=== PATIENT | female | born 1985 | race Two or more races ===

== ENCOUNTER 2023-11-25 07:40 | Day surgery (SDC) | payer OTHER ==
[2023-11-20 10:27] LABS: HEMATOCRIT 38.7 % (36.0-45.00); MEAN CELL VOLUME 85.7 fL (80.00-100.00); MEAN CORPUSCULAR HEMOGLOBIN 28.7 pg (27.00-32.0); MEAN CORPUSCULAR HGB CONC 33.5 g/dl (32.0-36.0); PLATELET COUNT 399 K/uL (150-450); RED BLOOD COUNT 4.52 M/uL (4.00-6.00); RED CELL DISTRIBUTION WIDTH 14.2 % (11.5-14.5)
[2023-11-20 10:49] LABS: PH,URINE 5.5 (5.0-8.0); URINE APPEARANCE Cloudy; URINE BILIRRUBIN Negative (NEGATIVE); URINE BLOOD Negative; URINE COLOR Yellow; URINE GLUCOSE Negative (NEGATIVE); URINE LEUKOCYTE Negative; URINE NITRATE Negative; URINE PROTEIN Negative (NEGATIVE); URINE UROBILINOGEN 0.2 E.U./dl
[2023-11-20 10:53] LABS: URINE RBC 18.4 uL (0.0-20.8); URINE WBC 18.2 uL (0.0-23.2)
[2023-11-20 10:57] LABS: INR 1.1; PARTIAL THROMBOPLASTIN TIME 34.2 SECONDS (22.0-34.0); PROTHROMBIN TIME 11.5 SECONDS (9.0-11.5)
[2023-11-20 11:07] LABS: ALBUMIN 3.6 gm/dL (3.4-5.0); BILIRUBIN TOTAL 0.44 mg/dL (0.3-1.2); CALCIUM 9.3 mg/dL (8.5-10.1); CREATININE SERUM 0.8 mg/dL (0.55-1.02); GFR 79.44; GLOBULINA 4.1 G/DL (2.4-3.5); POTASSIUM 4.19 mEq/L (3.5-5.1); TOTAL PROTEIN 7.7 gm/dL (6.4-8.2)
[2023-11-20 11:51] LABS: URINE BACTERIA > 9821.5 uL (0.0-1933); URINE CRYSTALS FEW /HPF
[~2023-11-25 07:40] MED LIST: SYNTHROID100 MCG PO
[2023-11-25] MEDS ORDERED: CEFAZOLIN SODIUM 1,000 MG VIAL IV SCH (12:00)
[2023-11-25] MEDS ORDERED: DEXAMETHASONE SODIUM PHOSPHATE 4 MG/ML VIAL IV SCH (12:00)
== END 2023-11-25 16:30 | disposition home or self-care (01) ==
LOC: CIR.AMB 07:40
PROVIDERS: ATTEND Otolaryngology
DX: C73 Malignant neoplasm of thyroid gland (principal); F41.9 Anxiety disorder, unspecified

== ENCOUNTER 2023-12-06 11:20 | Inpatient (IN) | payer OTHER ==
[~2023-12-06] VITALS: Ht 152.4 cm; Wt 109.8 kg
--- NOTE | 2023-12-06 12:12 | NUR ---
SE RECIBE PACIENTE ALERTA Y ORIENTADAA X3 REFIERE VENIR POR REFERIDO DE LA FAY.PRINCESS PARA DRENAR ABSCESO, EL CUAL SALIO LUEGO DE QUE LE RETIRARAN LA MITAD DE MEDINA TIROIDES.
[2023-12-06] MEDS ORDERED: PIPERACILLIN/TAZOBACTAM SODIUM 3.375 GM VIAL IV ONE ×2 (13:15→14:41)
[2023-12-06] MEDS ORDERED: DEXTROSE 50 % IN WATER 0.5 G/ML DISP.SYRIN IV PRN (13:30)
[2023-12-06] MEDS ORDERED: INSULIN LISPRO 1,000 UNIT/10 ML UNITS SUBCUTANEO PRN (13:30)
[2023-12-06 15:27] LABS: HEMOGLOBIN 13.5 g/dL (12.0-15.00); MEAN CELL VOLUME 85.9 fL (80.00-100.00); MEAN CORPUSCULAR HEMOGLOBIN 29.1 pg (27.00-32.0); MEAN CORPUSCULAR HGB CONC 33.9 g/dl (32.0-36.0); PLATELET COUNT 515 K/uL (150-450); RED BLOOD COUNT 4.65 M/uL (4.00-6.00); RED CELL DISTRIBUTION WIDTH 14.1 % (11.5-14.5)
[2023-12-06 15:33] LABS: CALCIUM 9.8 mg/dL (8.5-10.1); CREATININE SERUM 0.84 mg/dL (0.55-1.02); GFR 75.09
[2023-12-06 15:36] LABS: URINE APPEARANCE Clear; URINE BILIRRUBIN Negative (NEGATIVE); URINE BLOOD Small; URINE COLOR Yellow; URINE GLUCOSE Negative (NEGATIVE); URINE KETONE Negative (NEGATIVE); URINE LEUKOCYTE Negative; URINE NITRATE Negative; URINE PROTEIN Negative (NEGATIVE); URINE UROBILINOGEN 0.2 E.U./dl
[2023-12-06 15:42] LABS: URINE BACTERIA 822.6 uL (0.0-1933); URINE EPITHELIAL CELLS 22.5 uL (0.0-38.8); URINE RBC 19.6 uL (0.0-20.8); URINE WBC 6.4 uL (0.0-23.2)
[2023-12-06 15:55] LABS: URINE CAST 0.15 uL (0.0-1.40)
[2023-12-06] MEDS ORDERED: ACETAMINOPHEN 500 MG GEL..CAP PO SCH (17:00)
[2023-12-06] MEDS ORDERED: TRAMADOL HCL 50 MG TABLET PO SCH (18:00)
[2023-12-06] MEDS ORDERED: VANCOMYCIN HCL 1,000 MG in 0.9 % SODIUM CHLORIDE 250 ML IV SCH (20:46)
[2023-12-06] MEDS ORDERED: LACTOBACILLUS ACIDOPHILUS 1 CAP CAP PO SCH (20:46)
[2023-12-06] MEDS ORDERED: FAMOtidine 20 MG TABLET PO SCH (21:00)
[2023-12-07] MEDS ORDERED: LEVOTHYROXINE SODIUM 100 MCG TABLET PO SCH (06:00)
[2023-12-09] MEDS ORDERED: MUPIROCIN 22 GM OINT..GM TUBE TOP SCH (17:00)
[2023-12-09] MEDS ORDERED: CHLORHEXIDINE GLUCONATE 15ML BRUSH KIT MM SCH (17:56)
[2023-12-10] MEDS ORDERED: CHLORHEXIDINE GLUCONATE 240 ML BOTTLE TOP SCH (09:00)
== END 2023-12-10 11:32 | disposition home or self-care (01) | DRG 909 ==
LOC: ER 11:21 → SURH 14:48
PROVIDERS: General Practice; ADMIT Surgery; ATTEND Surgery
PROC: 0W960ZZ Drainage of Neck, Open Approach (ICD-10-PCS; principal; 2023-12-06)
DX: L76.34 Postprocedural seroma of skin and subcutaneous tissue following other procedure (principal); E03.9 Hypothyroidism, unspecified; R73.03 Prediabetes; Y83.8 Other surgical procedures as the cause of abnormal reaction of the patient, or of later complication, without mention of misadventure at the time of the procedure; B95.62 Methicillin resistant Staphylococcus aureus infection as the cause of diseases classified elsewhere